=== PATIENT | male | born 1950 | race Caucasian/White ===

== ENCOUNTER 2020-04-06 22:37 | Inpatient (IN) | payer MEDICARE, BC ==
[~2020-04-06] VITALS: Ht 182.9 cm; Wt 109.8 kg
[2020-04-06] MEDS ORDERED: NORV5TAB PO (23:00)
[2020-04-06] MEDS ORDERED: ALLO10TA PO (23:00)
[2020-04-06] MEDS ORDERED: MYRB50TA PO (23:00)
[2020-04-06] MEDS ORDERED: ENAL20TA PO (23:00)
[2020-04-06] MEDS ORDERED: vitamin d PO (23:00)
[2020-04-06] MEDS ORDERED: RESTCAP2 PO (23:00)
[2020-04-06] MEDS ORDERED: vitamin b PO (23:00)
[2020-04-06] MEDS ORDERED: GLIP5TAB8 PO (23:00)
[2020-04-06] MEDS ORDERED: PRED25TA PO (23:00)
[2020-04-06] MEDS ORDERED: FENO145T7 PO (23:00)
[2020-04-06] MEDS ORDERED: ONDANSETRON 4MG/2ML VIAL IV ONE (23:15)
[2020-04-06 23:36] LABS: HEMATOCRIT 42.1 % (42.0-52.0); HEMOGLOBIN 13.8 g/dl (13.5-17.5); MEAN CORPUSCULAR HEMOGLOBIN 31.4 pg (27.0-33.0); MEAN CORPUSCULAR HGB CONC 32.8 g/dl (32.0-36.5); MEAN CORPUSCULAR VOLUME 95.9 fl (80.0-96.0); PLATELET COUNT, AUTOMATED 190 10^3/uL (150-450); RED BLOOD COUNT 4.39 10^6/uL (4.30-6.10); WHITE BLOOD COUNT 10.4 10^3/uL (4.0-10.0)
[2020-04-06] MEDS: MORPHINE 4 MG/ML 1ML VIAL/SYRINGE (J2270) IV PRN (23:59)
--- NOTE | 2020-04-07 00:02 | REPVR ---
PROCEDURE INFORMATION: Exam: CT Lumbar Spine Without Contrast Exam date and time: 04/06/2020 11:10 PM Age: 69 years old Clinical indication: Injury or trauma; Fall; Initial encounter; Blunt trauma (contusions or hematomas) TECHNIQUE: Imaging protocol: Computed tomography images of the lumbar spine without contrast. Radiation optimization: All CT scans at this facility use at least one of these dose optimization techniques: automated exposure control; mA and/or kV adjustment per patient size (includes targeted exams where dose is matched to clinical indication); or iterative reconstruction. COMPARISON: No relevant prior studies available. FINDINGS: Vertebrae: Acute fractures of the right L1 and L2 transverse processes. Lumbar lordosis is preserved. Vertebral body heights are maintained. Multilevel facet arthropathy. No measurable spondylolisthesis. Discs/Spinal canal/Neural foramina: Multilevel degenerative changes with intervertebral disc height loss and osteophyte formation. Soft tissues: Unremarkable. IMPRESSION: Acute fractures of the right L1 and L2 transverse processes Electronically signed by: Rj Rain On 04/07/2020 00:01:54 AM
--- NOTE | 2020-04-07 00:04 | REPVR ---
PROCEDURE INFORMATION: Exam: CT Abdomen And Pelvis Without Contrast Exam date and time: 04/06/2020 11:10 PM Age: 69 years old Clinical indication: Injury or trauma; Fall; Initial encounter; Blunt; Generalized TECHNIQUE: Imaging protocol: Computed tomography of the abdomen and pelvis without contrast. Radiation optimization: All CT scans at this facility use at least one of these dose optimization techniques: automated exposure control; mA and/or kV adjustment per patient size (includes targeted exams where dose is matched to clinical indication); or iterative reconstruction. COMPARISON: No relevant prior studies available. FINDINGS: Liver: Nodular contour to the liver. Gallbladder and bile ducts: Unremarkable. No ductal dilation. Pancreas: Unremarkable. No ductal dilation. Spleen: Unremarkable. Adrenals: Unremarkable. Kidneys and ureters: Multiple fluid density cyst throughout the kidneys, largest on the left measuring 6 cm, to which no further follow-up is necessary. 3.1 cm isodense exophytic lesion off the inferior pole of the right kidney. No hydronephrosis or stones. Stomach and bowel: Stomach is unremarkable. No small bowel obstruction. Large bowel is unremarkable. Appendix: No evidence of appendicitis. Intraperitoneal space: No pneumoperitoneum. No significant fluid collection. Vasculature: Mild atherosclerotic calcifications of the aorta and major branches. Lymph nodes: No enlarged lymph nodes. Bladder: Unremarkable. Reproductive: Unremarkable as visualized. Bones/joints: Acute fractures of the right L1 and L2 transverse processes. Multilevel degenerative changes of the visualized spine. Soft tissues: Small fat containing right inguinal hernia. IMPRESSION: 1. Acute fractures of the right L1 and L2 transverse processes 2. Nodular contour to the liver. Correlate clinically for history of cirrhosis. 3. 3.1 cm isodense exophytic lesion off the inferior pole of the right kidney. Recommend follow-up nonemergent dedicated CT or MRI abdomen using renal mass protocol. 4. Other chronic findings, as above. Electronically signed by: Rj Rain On 04/07/2020 00:04:46 AM
--- NOTE | 2020-04-07 00:05 | REPVR ---
PROCEDURE INFORMATION: Exam: CT Thoracic Spine Without Contrast Exam date and time: 04/06/2020 11:10 PM Age: 69 years old Clinical indication: Injury or trauma; Fall; Initial encounter; Blunt trauma (contusions or hematomas) TECHNIQUE: Imaging protocol: Computed tomography images of the thoracic spine without contrast. Radiation optimization: All CT scans at this facility use at least one of these dose optimization techniques: automated exposure control; mA and/or kV adjustment per patient size (includes targeted exams where dose is matched to clinical indication); or iterative reconstruction. COMPARISON: No relevant prior studies available. FINDINGS: Vertebrae: Vertebral body heights are maintained. Multilevel facet arthropathy. Spinous processes are intact. No acute thoracic spine fracture. Discs/Spinal canal/Neural foramina: Multilevel degenerative disc height loss and osteophyte formation. No significant areas of canal narrowing. Soft tissues: Unremarkable. IMPRESSION: No acute thoracic spine fracture. Electronically signed by: Rj Rain On 04/07/2020 00:05:44 AM
--- NOTE | 2020-04-07 00:07 | REPVR ---
PROCEDURE INFORMATION: Exam: CT Cervical Spine Without Contrast Exam date and time: 04/06/2020 11:10 PM Age: 69 years old Clinical indication: Injury or trauma; Fall; Initial encounter; Blunt trauma TECHNIQUE: Imaging protocol: Computed tomography images of the cervical spine without contrast. Radiation optimization: All CT scans at this facility use at least one of these dose optimization techniques: automated exposure control; mA and/or kV adjustment per patient size (includes targeted exams where dose is matched to clinical indication); or iterative reconstruction. COMPARISON: No relevant prior studies available. FINDINGS: Vertebrae: Vertebral body heights are maintained. No locked or perched facets. Multilevel facet arthropathy. No acute cervical spine fracture. The dens is intact. Atlanto-axial intervals are normal. Discs/Spinal canal/Neural foramina: Multilevel degenerative changes with intervertebral disc height loss and prominent anterior and posterior osteophytes. Multilevel areas of mild to moderate canal stenosis. Soft tissues: Unremarkable. Thyroid: Bilateral thyroid nodules, larger on the right measuring 2.1 cm. Lungs: Lung apices are clear. IMPRESSION: 1. No acute cervical spine fracture. 2. Bilateral thyroid nodules, larger on the right measuring 2.1 cm. Recommend further evaluation with nonemergent thyroid ultrasound. 3. Other chronic findings, as above. COMMENTS: Consistent with the [employer]'s Incidental Findings Committee white paper (J Am Corinne Radiol 2015): In patients aged 35 years and older with an incidental thyroid nodule equal to or greater than 1.[address], MRI or extrathyroidal US, further evaluation with dedicated thyroid US is recommended for patients with normal life expectancy and without comorbidities. For smaller nodules without suspicious features, no further evaluation or follow up is recommended. Electronically signed by: Rj Rain On 04/07/2020 00:07:49 AM
[2020-04-07 00:18] LABS: BLOOD UREA NITROGEN 53 MG/DL (7-18); CALCIUM LEVEL 9.1 MG/DL (8.8-10.2); CARBON DIOXIDE LEVEL 22 MEQ/L (21-32); CHLORIDE LEVEL 111 MEQ/L (98-107); CREATININE FOR GFR 2.59 MG/DL (0.70-1.30); GLOMERULAR FILTRATION RATE 26.1 (>42); GLUCOSE, FASTING 100 MG/DL (70-100); POTASSIUM SERUM 4.9 MEQ/L (3.5-5.1); SODIUM LEVEL 141 MEQ/L (136-145)
[2020-04-07] MEDS: MORPHINE 4 MG/ML 1ML VIAL/SYRINGE (J2270) IV PRN (01:28)
--- NOTE | 2020-04-07 01:36 | HPEPDOC ---
[facility] Medical History & Physical Date of Admission Apr 07, 2020 Date of Service: Apr 07, 2020 Other Provider Sarita Mcclelland MD Attending Physician: NEW GOODWIN MD History and Physical TIME OF SERVICE: 2:15 AM CHIEF COMPLAINT: Fall HISTORY OF PRESENT ILLNESS: This is a 69 year old gentleman who reports falling while walking up a ramp while the sprinklers were running. As a result of the fall, he hit his head landed on his back and his arms. He denies having chest pain, fever, shortness of breath, nausea, vomiting, diarrhea or palpitations prior to the fall. According to Dr. gaspar. He has an L1-L2 fracture and will be seen by the Ortho service in the morning. Currently, the patient reports being severe back pain that's worse when he moves and better when he lies still. He hasn't been able to fall asleep because of the pain. REVIEW OF SYSTEMS: 12 point review of systems negative except as listed in HPI PAST MEDICAL/ SURGICAL HISTORY: Polymyalgia rheumatica Type 2 diabetes per patient A1c around 6 % Chronic hypertension Gout Dyslipidemia SOCIAL HISTORY: He doesn't smoke He drinks socially FAMILY HISTORY: Mother had hypertension Father had throat cancer ALLERGIES: Please see below. HOME MEDICATIONS: Please see below. PHYSICAL EXAMINATION: Vital Signs Date Time Temp Pulse Resp B/P (MAP) Pulse Ox O2 Delivery O2 Flow Rate FiO2 04/06/20 22:51 97.3 99 22 174/89 98 Room Air GEN: well-nourished / well developed/ NAD INTEGUMENT: has abrasions on his lower arms / he has a resolving his lower arms and back/his face is flushed HEENT: NCAT CVS: RRR/NMRG LUNGS: lungs are clear to auscultation bilaterally on room air ABDOMEN: Contour ( obese) MSK/EXTREMITIES: range of motion intact in all 4 extremities NEURO: CN 2-12 are grossly intact / speech is not dysarthric PSYCH: alert and oriented to person place and time/ able to understand and f ollow all commands LABORATORY DATA: 04/06/20 23:26 Nucleated Red Blood Cells % (auto) 0.0, Anion Gap 8, Glomerular Filtration Rate 26.1L, Calcium Level 9.1 IMAGING: CT thoracic spine "IMPRESSION: No acute thoracic spine fracture. " CT lumbar spine "IMPRESSION: Acute fractures of the right L1 and L2 transverse processes " CT cervical spine "IMPRESSION: 1. No acute cervical spine fracture. 2. Bilateral thyroid nodules, larger on the right measuring 2.1 cm. Recommend further evaluation with nonemergent thyroid ultrasound. 3. Other chronic findings, as above. "CT abdomen and pelvis "IMPRESSION: 1. Acute fractures of the right L1 and L2 transverse processes 2. Nodular contour to the liver. Correlate clinically for history of cirrhosis. 3. 3.1 cm isodense exophytic lesion off the inferior pole of the right kidney. Recommend follow-up nonemergent dedicated CT or MRI abdomen using renal mass protocol. 4. Other chronic findings, as above." Chest x-ray there appears to be an enlarged aorta and prominent pulmonary vasculature, but the final read is pending . MICROBIOLOGY: Please see below. ASSESSMENT: Mr. Dimas is a 69-year-old with a history of hypertension, gout, dyslipide sindi, diabetes and polymyalgia rheumatica who is admitted for evaluation of an L1-L2 fracture. PLAN: 1. Mechanical Fall resulting in L2 and L2 transverse process fractures He slipped on a wet walk way Reports form CT of the head and spine were reviewed. The mild leukocytosis is likely reactive due to the stress of the fall Plan: Admit to PCU/ medical floor / frequent neuro checks/fall precautions/ NPO w IVF pending Ortho eval / pain control w Ofrimev and Morphine / physical therapy consult to determine if he needs inpatient rehabilitation versus home therapy 2. Osteoporosis Likely due to chronic steroid use By definition the patient has osteoporosis bc of the vertebral fracture Plan: calcium 1250mg daily, vitamin D 2000 IU daily / will check phosphorus, magnesium, TSH, Calcium, 25-OH Vitamin D, PTH, urine Ca, Alk P & SPEP to r/o secondary causes of osteoporosis / he can f/u with his PCP for a DEXA / if his T score is -3 on Dexa and or it is confirmed that the osteoporosis is st eroid induced he will also need Terapiratide 3. LESLIE vs LESLIE on CKD Plan: f/u [facility] for FENa FEurea, phosp, vitamin D, PTH, SPEP, PTH, & uric acid to screen for gout nephropaty / IVF / hold enalapril & allopurinol 4. Right Renal Mass 3 cm in size Plan: MRI of the abdomen renal protocol 4. Thyroid Nodules Plan: f/u TSH / he can f/u w his PCP for Thyroid US +/- FNA 5. Nodular Liver Possibly 2/2 MOHAMUD (risk factors DM and Obesity ) Plan: f/u w PCP for Hepatitis screening and Liver US 6. Polymyalgia rheumatica Plan: c/w prednisone 6. Type 2 diabetes Plan: f/u accuchecks & A1C / hypoglycemia protocol / sliding scale insulin / hold oral anti-glycemics / he can f/u with his PCP to determine if he is a candidate for canagliflozin to reduced the risk of ESKD in diabetics on an out pt basis 7. Gout Plan: hold allopurinol bc of LESLIE 8. Chronic HTN Plan: amlodipine / hold ACEI bc of LESLIE 9. Obesity BMI 32.6 w coexisting DM complicates care Plan: f/u w PCP for sleep apnea screening DVT PROPHYLAXIS: SCDs pending Ortho eval DISPOSITION: home vs ARU after more than 2 midnight's stay Home Medications Scheduled Allopurinol (Zyloprim) 300 Mg Tablet, 300 MG PO DAILY Amlodipine Besylate (Amlodipine Besylate) 5 Mg Tablet, 5 MG PO DAILY Cholecalciferol (Vitamin D3) (Vitamin D3) 1,000 Unit Tablet, 1,000 UNITS PO DAILY Enalapril Maleate (Enalapril Maleate) 20 Mg Tablet, 20 MG PO DAILY Glipizide (Glipizide) 5 Mg Tablet, 5 MG PO DAILY Multivitamins (Thera M Plus Tablet) 1 Each Tablet, 1 TAB PO DAILY Savannah-3 Acid Ethyl Esters (Savannah-3 Acid Ethyl Esters) 1 Gm Capsule, 4 CAP PO DAILY Prednisone (Prednisone) 10 Mg Tablet, 10 MG PO DAILY Tamsulosin HCl (Flomax) 0.4 Mg Capsule, 0.4 MG PO DAILY Vitamin B Complex (Vitamin B Complex) 1 Each Tablet, 1 TAB PO DAILY Allergies Coded Allergies: Contrast Media (Verified Allergy, Unknown, flushed, 04/06/20) A-FIB/CHADSVASC A-FIB History Current/History of A-Fib/PAF?: No Current PO Anticoag Therapy: NEW Bean MD Apr 07, 2020 01:36
[2020-04-07] MEDS ORDERED: GLIP5TAB8 PO (01:43)
[2020-04-07] MEDS ORDERED: FLOM0.4C39 PO (01:43)
[2020-04-07] MEDS ORDERED: PRED10TA2 PO (01:43)
[2020-04-07] MEDS ORDERED: ENAL20TA PO (01:43)
[2020-04-07] MEDS ORDERED: VITAD1000T PO (01:43)
[2020-04-07] MEDS ORDERED: AMLO5TAB6 PO (01:43)
[2020-04-07] MEDS ORDERED: OMEG1CAP4 PO (01:43)
[2020-04-07] MEDS ORDERED: VITATAB73 PO (01:43)
[2020-04-07] MEDS ORDERED: ZYLO300T6 PO (01:43)
[2020-04-07] MEDS ORDERED: VITMTA PO (01:43)
[2020-04-07] MEDS ORDERED: ACETAMINOPHEN *IV* 1,000 MG in IV 1 EA IV PRN (01:45)
[2020-04-07] MEDS ORDERED: MIRALAX *UNIT DOSE* 17GM PACKET PO PRN (01:45)
[2020-04-07 02:28] LABS: NT-PRO BNP 91 PG/ML (<125); TROPONIN I < 0.02 NG/ML (< 0.10)
[2020-04-07 03:26] LABS: HEMOGLOBIN A1c 6.3 %
[2020-04-07] MEDS: LR 1,000 ML IV SCH ×2 (03:28→15:56)
[2020-04-07] MEDS: MORPHINE 2 MG/ML 1ML VIAL (J2270) IV PRN ×5 (03:40→20:55)
[2020-04-07] MEDS ORDERED: DEXTROSE 50% 50 ML SYRINGE IV PRN (04:30)
[2020-04-07] MEDS ORDERED: GLUCOSE 4GM CHEW TABLET PO PRN (04:30)
[2020-04-07] MEDS ORDERED: GLUCAGON INJ 1MG VIAL SC PRN (04:30)
[2020-04-07 06:01] LABS: HEMOGLOBIN 12.6 g/dl (13.5-17.5); MEAN CORPUSCULAR HEMOGLOBIN 31.3 pg (27.0-33.0); MEAN CORPUSCULAR HGB CONC 32.3 g/dl (32.0-36.5); PLATELET COUNT, AUTOMATED 157 10^3/uL (150-450); RED BLOOD COUNT 4.02 10^6/uL (4.30-6.10); WHITE BLOOD COUNT 10.5 10^3/uL (4.0-10.0)
[2020-04-07 06:27] LABS: PHOSPHORUS LEVEL 3.4 MG/DL (2.5-4.9); TOTAL PROTEIN 6.5 GM/DL (6.4-8.2); URIC ACID 5.8 MG/DL (3.5-7.2)
[2020-04-07 06:38] LABS: CALCIUM LEVEL 8.4 MG/DL (8.8-10.2); CREATININE FOR GFR 2.45 MG/DL (0.70-1.30); GLOMERULAR FILTRATION RATE 27.9 (>42); POTASSIUM SERUM 4.8 MEQ/L (3.5-5.1); THYROID STIMULATING HORMONE 1.2 uIU/ML (0.358-3.740)
[2020-04-07] MEDS: HumaLOG INSULIN (NovoLOG) PER UNIT SC SCH ×3 (08:49→17:30)
[2020-04-07] MEDS: predniSONE 10 MG TAB PO SCH (08:51)
[2020-04-07] MEDS: VITAMIN D 1,000 INTERNATIONAL UNITS TABLET PO SCH (08:51)
[2020-04-07] MEDS: TAMSULOSIN 0.4 MG CAP PO SCH (08:51)
[2020-04-07] MEDS: amLODIPine 5 MG TAB PO SCH (08:52)
[2020-04-07] MEDS: CALCIUM CARB SUSP 1250MG/5ML UNIT DOSE CUP PO SCH (08:53)
[2020-04-07] MEDS ORDERED: allopurinoL 300 MG TAB PO SCH (09:00)
--- NOTE | 2020-04-07 09:44 | REP ---
REASON: Trauma. COMPARISON: None. There is a discoid opacity in the left lower lobe. The technique utilized in obtaining the radiograph has magnified the cardiac silhouette and accentuated the interstitial markings. Cardiac silhouette is magnified by technique. The lung vasquez are otherwise clear. There is left CP angle blunting. The right CP angle is sharp. The osseous structures are within normal limits. IMPRESSION: Suspect left base subsegmental atelectatic changes. Electronically Signed by Da Ugarte DO 04/07/2020 04:53 P
[2020-04-07 12:34] LABS: PTH INTACT 61.5 PG/ML (18.5-88.0); TOTAL 25(OH) VITAMIN D 33.3 NG/ML (30.0-100.0)
[2020-04-07 14:34] LABS: ALBUMIN 4.06 GM/DL (3.29-5.55); ALBUMIN % 62.4 % (55.8-66.1); ALPHA-1-GLOBULIN % 4.1 % (2.9-4.9); ALPHA-1-GLOBULINS 0.27 GM/DL (0.17-0.41); ALPHA-2-GLOBULINS % 10.7 % (7.1-11.8); BETA-1-GLOBULINS 0.42 GM/DL (0.28-0.60); BETA-1-GLOBULINS % 6.5 % (4.7-7.2); BETA-2-GLOBULINS % 4.6 % (3.2-6.5); GAMMA GLOBULIN % 11.7 % (11.1-18.8); GAMMA GLOBULINS 0.76 GM/DL (0.65-1.58)
--- NOTE | 2020-04-07 15:04 | IPNPDOC ---
Text Note Date of Service The patient was seen on 04/07/20. NOTE Subjective: Patient is a 69-year-old male with a PMHx of HTN, DLP, DM2, Polymyalgia rheumatica, Gout , who presented to the emergency room after he fell and landed on his back after having slipped while walking up a wet ramp. Patient was experiencing severe back pain and presented to the emergency room for further evaluation. Imaging completed did reveal a fracture of his L1/L2 transverse processes. Patient was admitted to the hospitalist service for further evaluation and treatment and orthopedic surgery was called on consultation. Patient was seen and examined at the bedside. Patient reports that currently his back pain is controlled. Denies any chest pain, shortness of breath or palpitations. Has not expense any nausea, vomiting, belly pain, diarrhea, or urinary discomfort. Objective: Vitals (See below) General: Lying in bed, appears to be resting comfortably, AAOx3 HEENT: NC, AT CVS: RRR, +S1S2 Lungs: Fair air entry b/l, -w/r/r Abdomen: Soft, ND, NT Extremities: - Edema, - Calf tenderness Imaging: - Cervical spine 04/07: 1. No acute cervical spine fracture. 2. Bilateral thyroid nodules, larger on the right measuring 2.1 cm. Recommend further evaluation with nonemergent thyroid ultrasound. 3. Other chronic findings, as above. - Thoracic spine 04/07: No acute thoracic spine fracture. - Lumbar spine 04/07: Acute fractures of the right L1 and L2 transverse processes - CT abdomen / pelvis 04/07: 1. Acute fractures of the right L1 and L2 transverse processes 2. Nodular contour to the liver. Correlate clinically for history of cirrhosis. 3. 3.1 cm isodense exophytic lesion off the inferior pole of the right kidney. Recommend follow-up nonemergent dedicated CT or MRI abdomen using renal mass protocol. 4. Other chronic findings, as above. - CXR 04/07: Suspect left base subsegmental atelectatic changes. Assessment and plan: Mechanical Fall / Back pain - likely 2/2 L1 and L2 transverse process fractures - Patient reported that he mechanically fell while walking up a wet walkway - Patient reports that currently his pain is well controlled - Physical without any focal neurologic deficits - CT imaging noted above - Awaiting orthopedic evaluation Osteoporosis - likely 2/2 chronic steroid use - c/w calcium / vitamin d supplementation - Will have outpatient follow up with PCP / Orthopedic surgery Elevated Cr - possibly 2/2 CKD, possibly 2/2 LESLIE on CKD - Will request records form outpatient providers to establish baseline - SPEP - negative - Vitamin D / PTH - normal - c/w IV fluid hydration Right Renal Mass - I described the findings of CT scan with patient; he has verbalized understanding and need for additional imaging - However, we will hold off on additional imaging given patient's poor renal function at this time Thyroid Nodules - TSH levle noted - will have outpatient follow up with PCP for additional evaluation / imaging / biopsy Nodular Liver - possibly 2/2 MOHAMUD (risk factors DM and Obesity) - Will have f/u w PCP for Hepatitis screening and Liver US Polymyalgia rheumatica - c/w prednisone DM2 - c/w ISS Gout - Will hold Allopurinol HTN - BP moderately controlled - Enalapril on hold - c/w Amlodipine Obesity - BMI of 32.6 - Complicating medical care DVT prophylaxis - c/w TEDs/Sequentials Disposition: - Awaiting for orthopedic surgery evaluation VS,Carl, I+O VS, Carl, I+O Laboratory Tests 04/06/20 23:26 04/07/20 05:39 Vital Signs Date Time Temp Pulse Resp B/P (MAP) Pulse Ox O2 Delivery O2 Flow Rate FiO2 04/07/20 12:39 98.3 65 18 152/71 (98) 94 Room Air I&O- Last 24 Hours up to 6 AM 04/07/20 06:00 Intake Total 60 ml Balance 60 ml LOUIS HURST MD Apr 07, 2020 15:04
[2020-04-07 15:50] LABS: BACTERIA, URINE AUTO NEGATIVE (NEGATIVE); RBC, URINE AUTO 1 /HPF (0-3); SQUAMOUS EPITHELIAL CELL UR AU 0 /HPF (0-6); WBC, URINE AUTO 0 /HPF (0-3)
[2020-04-07 16:31] LABS: CREATININE,RANDOM URINE 69.3 MG/DL; SODIUM,RANDOM URINE 115 MEQ/L; UREA NITROGEN RANDOM URINE 651 MG/DL
[2020-04-07 16:33] LABS: CALCIUM,RANDOM URINE < 5.0 MG/DL
[2020-04-07] MEDS ORDERED: HumaLOG INSULIN (NovoLOG) PER UNIT SC SCH (21:00)
[2020-04-07 22:00] VITALS: BP 154/82
[2020-04-08] MEDS: MORPHINE 2 MG/ML 1ML VIAL (J2270) IV PRN ×2 (00:09→05:58)
[2020-04-08 06:00] VITALS: BP 156/83
--- NOTE | 2020-04-08 06:38 | HPE ---
DATE OF ADMISSION: 04/07/2020 CHIEF COMPLAINT: L1 and L2 transverse process fractures. HISTORY OF PRESENT ILLNESS: 69-year-old man who reports falling while walking up a dock. He states that the sprinklers were running and the dock was wet. After the fall, he hit his head, but denies loss of consciousness, chest pain, fever, or shortness of breath. CT scan revealed a L1 and L2 transverse process fracture. He is having difficulties mobilizing. He was able to shuffle and walk after the fall. He denies urinary incontinence, overflow incontinence, loss of bowel or bladder function, as well as denying perianal numbness. PAST MEDICAL HISTORY: Includes polymyalgia rheumatica, type 2 diabetes, chronic hypertension, gout, dyslipidemia. MEDICATIONS: - Allopurinol - amlodipine - cholecalciferol - enalapril - glipizide - multivitamins - prednisone - tamsulosin - vitamin D ALLERGIES: - CONTRAST MEDIA SOCIAL HISTORY: Drinks socially. He does not smoke. PHYSICAL EXAMINATION: Vital signs reveal a blood pressure of 152/71, pulse rate 65, respiratory rate 18, 94% on room air, and temperature 98.3. He is lying down in bed. Appears slightly uncomfortable. I had him log roll to the right side. There is some mild bruising overlying the proximal lumbar spine on the right side. There are superficial abrasions. It is painful to palpate in that area. Minimal midline spine tenderness. No obvious steps or gaps. Normal sensation L2-S1 in his lower extremities. Strength is slightly diminished in terms of hip flexion on the left side graded 4+/5; however, 5/5 from L3-S1 on the left side, as well as 5/5 strength L2-S1 on the right side. He is able to wiggles his toes, dorsiflex and plantar flex the foot. Normal sensation distally. Good pedal pulses, tibialis posterior on both sides feet. Feet are warm and well perfused. No obvious pain with hip logrolling testing. IMAGING: Lumbar spine CT was reviewed. This demonstrates acute fractures of the right L1 and L2 transverse processes. No other obvious other fractures or spondylolisthesis noted. ASSESSMENT/PLAN: This 69-year-old man has acute right L1 and -L2 transverse process fractures. These are treated nonoperatively. He can be mobilized weightbearing as tolerated. He should see the physical therapist and occupational therapy (OT) for assessment. He may need or benefit from a walker. He may be prescribed a lumbar orthosis style brace to help with mobilization. Pain control should be achieved and managed by the hospitalist service. Follow up on outpatient basis in terms of his orthopedic issues. He can be made diet as tolerated as there is no need for an acute surgical intervention in this case.
[2020-04-08] MEDS: HumaLOG INSULIN (NovoLOG) PER UNIT SC SCH ×2 (07:30→11:28)
[2020-04-08 08:53] VITALS: BP 162/82
[2020-04-08] MEDS: CALCIUM CARB SUSP 1250MG/5ML UNIT DOSE CUP PO SCH (08:53)
[2020-04-08] MEDS: TAMSULOSIN 0.4 MG CAP PO SCH (08:53)
[2020-04-08] MEDS: predniSONE 10 MG TAB PO SCH (08:53)
[2020-04-08] MEDS: VITAMIN D 1,000 INTERNATIONAL UNITS TABLET PO SCH (08:53)
[2020-04-08] MEDS: amLODIPine 5 MG TAB PO SCH (08:53)
[2020-04-08 10:16] LABS: HEMATOCRIT 41.4 % (42.0-52.0); HEMOGLOBIN 13.6 g/dl (13.5-17.5); MEAN CORPUSCULAR HEMOGLOBIN 31.1 pg (27.0-33.0); MEAN CORPUSCULAR HGB CONC 32.9 g/dl (32.0-36.5); MEAN CORPUSCULAR VOLUME 94.7 fl (80.0-96.0); PLATELET COUNT, AUTOMATED 168 10^3/uL (150-450); RED BLOOD COUNT 4.37 10^6/uL (4.30-6.10); WHITE BLOOD COUNT 10.4 10^3/uL (4.0-10.0)
[2020-04-08 10:42] LABS: ALBUMIN 3.6 GM/DL (3.2-5.2); BILIRUBIN,TOTAL 1.2 MG/DL (0.2-1.0); CREATININE FOR GFR 2.11 MG/DL (0.70-1.30); GLOMERULAR FILTRATION RATE 33.1 (>42); POTASSIUM SERUM 4.4 MEQ/L (3.5-5.1); TOTAL PROTEIN 7.2 GM/DL (6.4-8.2)
--- NOTE | 2020-04-08 21:06 | IPN ---
DATE: 04/08/2020 Patient still complains of back pain rated as 6/10, able to sit, awaiting a brace. Per ortho, non-surgical. Patient has been noted to have an exophytic lesion 3 cm in the right upper pole of the kidney. Per urologist, Dr. Marley, obtain an MRI. The patient says that he has a urologist and a insurance actuary but does not know what his baseline creatinine is. The patient has had no fever or chills overnight. No other issues this morning. The patient denies any hematuria. Denies any weight loss. He says that most of his workup is in [place]. Vital Signs: Temperature 98.9, pulse 63, respiratory rate 18, blood pressure 156/83, 93% on room air. Generally, awake, alert, oriented times three, answering questions appropriately. Patient's lungs are clear to auscultation. No wheezing, rales or rhonchi. Heart: S1, S2, sinus rhythm. Abdomen is obese, soft, nontender, nondistended. Patient does have limitation of his strength at L2-S1 with diminished hip flexion. Laboratory data, imaging studies have all been reviewed. Notable for an exophytic lesion on the right renal kidney, cyst on the left. ASSESSMENT AND PLAN: This is a 69-year-old with chronic kidney disease, followed with insurance actuary and urologist in [place], presents after a fall while at his camp, with a lumbar fracture, which is nonsurgical, awaiting a brace currently. CURRENT ISSUES: 1. Mechanical fall with L1-L2 transverse process fractures, nonsurgical, awaiting physical therapy (PT) clearance and brace. Per orthopedic surgery, outpatient followup and pain control. 2. Chronic kidney disease. Baseline creatinine is 2.2 from his previous lab work in October 2019, currently at baseline. No further workup. 3. Right renal mass. Per the patient, he has notable cyst on the left, but the right renal mass is new. Per Dr. Marley, urologist, patient will need inpatient MRI renal protocol, and he can followup as an outpatient if he desires if cystic. 4. Thyroid nodules. Outpatient followup for additional imaging and possible biopsy. 5. Nodular liver secondary to non-alcoholic steatohepatitis. Outpatient followup. 6. Type 2 diabetes, stable on consistent carbohydrate diet. Insulin sliding scale. 7. Hypertension. Currently controlled on enalapril. DISPOSITION: Awaiting results of the MRI renal protocol. At this time, the patient is still awaiting a brace and PT clearance prior to discharge. If the MRI of the right renal mass is not solid, patient may have outpatient followup with his own insurance actuary and urologist. LUZ MARIA
== END 2020-04-08 13:47 | disposition home or self-care (01) | DRG 552 ==
LOC: M ED 22:37 → M ED INP 04-07 01:32 → ENRESERV 04-07 13:51 → M MS5PR 04-07 15:49
PROVIDERS: ADMIT Internal Medicine; ATTEND General Practice
DX: S32.018A Other fracture of first lumbar vertebra, initial encounter for closed fracture (principal); N17.9 Acute kidney failure, unspecified; M35.3 Polymyalgia rheumatica; E11.22 Type 2 diabetes mellitus with diabetic chronic kidney disease; I10 Essential (primary) hypertension; M10.9 Gout, unspecified; E78.5 Hyperlipidemia, unspecified; N18.9 Chronic kidney disease, unspecified; E04.2 Nontoxic multinodular goiter; S32.028A Other fracture of second lumbar vertebra, initial encounter for closed fracture; W18.09XA Striking against other object with subsequent fall, initial encounter; M81.8 Other osteoporosis without current pathological fracture; T38.0X5A Adverse effect of glucocorticoids and synthetic analogues, initial encounter; N28.89 Other specified disorders of kidney and ureter; E66.9 Obesity, unspecified; K75.81 Nonalcoholic steatohepatitis (NASH); Z79.52 Long term (current) use of systemic steroids; Z79.899 Other long term (current) drug therapy; Z79.84 Long term (current) use of oral hypoglycemic drugs; Z68.32 Body mass index [BMI] 32.0-32.9, adult; Z91.041 Radiographic dye allergy status